=== PATIENT | male | born 1980 | race Two or more races ===

== ENCOUNTER 2018-05-07 08:10 | Day surgery (SDC) | payer OTHER ==
[~2018-05-07 08:10] MED LIST: METHYLPREDNISOLO4 M1 PO; NORFLEX100MG PO
== END 2018-05-07 16:40 | disposition home or self-care (01) ==
LOC: CIR.AMB 08:10
DX: S52.571A Other intraarticular fracture of lower end of right radius, initial encounter for closed fracture (principal)
CPT/HCPCS: 25609; 25280; 25118; C1776